=== PATIENT | female | born 1985 | race Hispanic/Latino ===

== ENCOUNTER 2020-06-12 20:14 | Emergency (ER) | payer SELFPAY ==
--- NOTE | ~2020-06-12 | XR_ITS ---
EXAMINATION: XR chest 2V DATE: 06/12/2020 21:51 INDICATION: Altered mental status. TECHNIQUE: frontal and lateral views of the chest were obtained. COMPARISON: None FINDINGS: The lungs are clear with no focal airspace opacities, pulmonary edema, pleural effusion or pneumothor ax. The cardiomediastinal silhouette is normal. Mild thoracic spondylosis. IMPRESSION: 1. No acute cardiopulmonary disease. Reviewed, dictated and finalized at location A. [employer]
--- NOTE | ~2020-06-12 | CT_ITS ---
EXAMINATION: CT brain wo con INDICATION: Headache COMPARISON: None TECHNIQUE: Standard unenhanced head CT. The dose-length product (DLP) was 605.33 mGy-cm. The mA was a djusted according to patient size. Iterative reconstruction technique was employed. FINDINGS: There is no intracranial hemorrhage, acute infarction, or abnormal mass lesion. The ventric les are normal. There is no abnormal mass effect or midline shift. The bryan-white matter differentiat ion is normal. The basal cisterns are patent. The orbits are normal. The paranasal sinuses, mastoids and calvarium are normal. IMPRESSION: 1. No acute intracranial abnormality. Reviewed, dictated and finalized at location A. [employer]
[2020-06-12 20:17] VITALS: BP 156/95; PULSE 98; RESP 20; TEMP 37.2; O2SAT 100
--- NOTE | 2020-06-12 20:21 | PC.NURSE ---
2019 patient given 2mg of narcan intranasal, patient aware more and responding. Patient only stating where is damaso. Patient cryiing and shivering. Patient provided with blankets.
--- NOTE | 2020-06-12 20:31 | ED.GENADULT ---
HPI - General Adult General Chief complaint: Altered Mental Status Stated complaint: weak? Time Seen by Provider: 06/12/20 20:21 History of Present Illness HPI narrative: Patient is a 35-year-old female who presents ER with complaints of headache and potential unresponsiveness. Patient brought back to the room and is very responsive to sternal rub but then will fall limp. Friends with her reports she does not use drugs. Reports she has been complaining of headache throughout the day. No trauma. Patient given Narcan and then decide to start talking but it seems unlikely that this is related to opiate overdose. Through interpreter for the deaf patient reports she had a throbbing frontal headache throughout the day that is not improved with anything. She has not tried any medications. No sensitivity to light or sound. Reports she is under a lot of stress. Patient has had no fevers or chills or sweats. No neck pain. No numbness or tingling to the arms or legs. Related Data Allergies Allergy/AdvReac Type Severity Reaction Status Date / Time No Known Allergies Allergy Verified 06/12/20 21:12 Review of Systems Review of Systems: All systems reviewed & are unremarkable except as noted in HPI and below Constitutional: Constitutional: Denies chills, Denies fever(s) and Denies weakness Eyes: Eyes: Denies change in vision and Denies photophobia ENT: Denies nasal congestion and Denies sore throat Respiratory: Respiratory: Denies cough, Denies dyspnea and Denies wheezing Gastrointestinal: Gastrointestinal: Denies abdominal pain, Denies diarrhea, Denies nausea and Denies vomiting Neurologic: Reports confusion, Reports headache(s), Denies focal weakness and Denies numbness PMFSH Past Medical History Medical History (Updated 06/12/20 @ 23:41 by Ubaldo Cristobal MD) Healthy female adult Surgical History Surgical History (Updated 06/12/20 @ 23:38 by Ubaldo Cristobal MD) No history of previous surgery Social History Social History (Updated 06/12/20 @ 23:38 by Ubaldo Cristobal MD) Smoking status: Never smoker Substance use: never Exam Narrative: Exam Narrative: GENERAL: Well-appearing, well-nourished, and in no acute distress. HEAD: Normocephalic, atraumatic. EYES: PERRLA and EOMI. ENT: Mucous membranes moist. CHEST: Clear to auscultation. No respiratory distress. HEART: Regular rate and rhythm. Normal peripheral pulses. ABDOMEN: Soft, nontender, nondistended. EXTREMITIES: Normal range of motion. No edema. SKIN: Warm, dry, no rash. NEURO: No focal deficits. Alert and oriented x3. PSYCH: Normal mood and affect. Course Course Emergency Course: Headache resolved with Toradol. Patient up and ambulatory reports she feels much better. Unsure what the event was that she suffered from. [place] it may be related to the stress that she is having. Apparently she is but also has a boyfriend who is with her this evening. Patient will not elaborate further. Vital Signs Vital signs: Vital Signs Temperature 99.0 F 06/12/20 20:17 Pulse Rate 98 06/12/20 20:17 Respiratory Rate 20 06/12/20 20:17 Blood Pressure 156/95 H 06/12/20 20:17 Pulse Oximetry 100 06/12/20 20:17 Temperature 99.0 F 06/12/20 20:17 Pulse Rate 98 06/12/20 20:17 Respiratory Rate 20 06/12/20 20:17 Blood Pressure 156/95 H 06/12/20 20:17 Pulse Oximetry 100 06/12/20 20:17 Medical Decision Making Vital Signs Vital Signs: Vital Signs Temperature 99.0 F 06/12/20 20:17 Pulse Rate 98 06/12/20 20:17 Respiratory Rate 20 06/12/20 20:17 Blood Pressure 156/95 H 06/12/20 20:17 Pulse Oximetry 100 06/12/20 20:17 Temperature 99.0 F 06/12/20 20:17 Pulse Rate 98 06/12/20 20:17 Respiratory Rate 20 06/12/20 20:17 Blood Pressure 156/95 H 06/12/20 20:17 Pulse Oximetry 100 06/12/20 20:17 Lab Data Result diagrams: 06/12/20 20:32 06/12/20 20:32 Labs: Lab Results
[2020-06-12 20:42] LABS: Basophils Absolute Auto 0.1 K/mm3 (0.0-0.1); Basophils Percent Auto 0.6 % (0.2-1.2); Eosinophils Absolute Auto 0.1 K/mm3 (0-0.3); Eosinophils Percent Auto 0.9 % (0-4.4); Hematocrit 41.2 % (37.0-47.0); Immature Granulocyte Absolute 0.02 K/mm3 (0.00-0.031); Immature Granulocyte Percent A 0.2 % (0-0.5); Lymphocytes Absolute Auto 2.15 K/mm3 (0.9-3.2); Lymphocytes Percent Auto 24.8 % (18.3-44.2); Mean Corpuscular Hemoglobin 30.4 pg (26-34); Mean Corpuscular Volume 89.6 fl (80-100); Monocytes Absolute Auto 0.6 K/mm3 (0.1-0.6); Monocytes Percent Auto 6.6 % (2.6-8.5); Neutrophils Absolute Auto 5.8 K/mm3 (1.3-6.7); Neutrophils Percent Auto 66.9 % (45.5-73.1); Platelet Count Result 292 k/mm3 (150-375); White Blood Count 8.7 K/mm3 (4.5-10.0)
[2020-06-12] MEDS: SODIUM CHLORIDE 0.9% IV 1,000 ML 999 ML IV CONT (20:45)
[2020-06-12 20:52] LABS: Lactic Acid Reflex 1.3 mmol/L (0.7-2.1)
[2020-06-12 20:53] LABS: Ethanol < 10 mg/dL (<10)
[2020-06-12 20:54] LABS: Alanine Aminotransferase 59 U/L (4-35); Albumin Level 4.1 g/dL (3.5-5.1); Alkaline Phosphatase 81 U/L (38-126); Anion Gap 6 mmol/L (8-16); Aspartate Amino Transferase 39 U/L (14-36); Bilirubin,Total 0.3 mg/dL (0.2-1.3); Blood Urea Nitrogen 14 mg/dL (7-17); Calcium 9.2 mg/dL (8.4-10.2); Carbon Dioxide 28 mmol/L (22-30); Chloride 103 mmol/L (98-107); Estimated Glomerular Filt Rate > 60; Glucose 101 mg/dL (65-105); Potassium 3.7 mmol/L (3.4-5.0); Sodium 137 mmol/L (137-145)
[2020-06-12] MEDS: KETOROLAC 30 MG/ML VIAL (*BKC) IV PUSH (21:56)
[2020-06-12 23:04] LABS: Add Urine Microscopic? NO; Appearance Urine Clear (Clear); Bilirubin Urine Negative (Negative); Blood Urine Negative (Negative); Color Urine Colorless (Yellow); Glucose Urine UA Negative (Negative); Ketones Urine Negative (Negative); Leukocyte Esterase Ur Negative LEU/UL (Negative); Nitrate Urine Negative (Negative); Protein Urine Negative (Negative); Urobilinogen Urine Negative mg/dL (<2.0)
[2020-06-12 23:19] LABS: Amphetamine Screen Urine Negative (Negative); Barbiturate Screen Urine Negative (Negative); Benzodiazepines Screen Urine Negative (Negative); Cannabinoid Screen Urine Negative (Negative); Cocaine Screen Urine Negative (Negative); Methadone Screen Urine Negative (Negative); Opiate Screen Urine Negative (Negative); Phencyclidine Screen Urine Negative (Negative)
[2020-06-12 23:44] VITALS: BP 108/72; PULSE 75; RESP 14; O2SAT 99
[2020-06-14 07:21] LABS: Glucose Point of Care 101 (65-105)
== END 2020-06-13 00:04 | disposition home or self-care (01) ==
PROVIDERS: Emergency Provider Emergency Medicine
DX: R51.9 Headache, unspecified (principal); R41.0 Disorientation, unspecified
CPT/HCPCS: 36415; 70450; 71046; 80053; 80307; 81003; 82948; 83605; 85025; 96361; 96374; 99284; J1885; J7030